=== PATIENT | female | born 1940 | race Caucasian/White ===

== ENCOUNTER 2019-08-17 13:19 | Inpatient (IN) ==
[2019-08-17] MEDS ORDERED: ONDANSETRON 4 MG/2 ML VIAL IV STA (13:52)
[2019-08-17] MEDS ORDERED: fentaNYL 100 MCG/2 ML VIAL IV STA (13:52)
[2019-08-17] MEDS ORDERED: fentaNYL 100 MCG/2 ML VIAL IV PRN (15:04)
[2019-08-17] MEDS ORDERED: ONDANSETRON 4 MG/2 ML VIAL IV PRN (15:04)
[2019-08-17 16:00] LABS: Basophils # 0.1 10*3/uL (0.0-0.2); Basophils % 0.5 % (0.0-0.8); Eosinophils # 0.2 10*3/uL (0.0-0.87); Eosinophils % 1.1 % (0.00-10.9); Hematocrit 35.3 VOL% (35.7-47.0); Hemoglobin 11.4 GM/DL (12.0-16.0); Immature Granulocytes % 0.7 %; Immature Granulocytes Absolute 0.11 #; Lymphocytes # 2.7 10*3/uL (1.4-4.0); Lymphocytes % 15.9 % (21.3-54.2); Mean Corpuscular HGB Conc 32.3 GM/DL (32-36); Mean Corpuscular Volume 89.1 FL (87-102); Mean Platelet Volume 10.8 FL (9.6-12.0); Monocytes % 7.1 % (1.7-12.7); Neutrophils % 74.7 % (38.7-73.9); Platelet Count 311 T/CUMM (130-400); Red Blood Count 3.96 MC/CUMM (3.8-5.5); Red Cell Distribution Width 13.6 % (9.3-17.3); White Blood Count 16.9 T/CUMM (4-12)
[2019-08-17 16:09] LABS: PT Patient Result 21.5 SECS (9.6-12.2)
[2019-08-17 16:21] LABS: Alanine Aminotransferase 23 U/L (13-56); Albumin 3.2 G/DL (3.4-5.0); Alkaline Phosphatase 79 U/L (45-117); Aspartate Amino Transferase 27 U/L (0-37); Blood Urea Nitrogen 20 MG/DL (7-18); Calcium 8.9 MG/DL (8.5-10.1); Estimated Glom Filtration Rate 63 ML/MIN; Glucose 98 MG/DL (74-106); Total Protein 7.7 G/DL (6.4-8.3); Troponin I < 0.015 NG/ML (0.00-0.045)
[2019-08-17 16:52] LABS: Apearance,Urine Slightly Hazy (Clear); Bacteria,Urine Occasional /HPF (Few); Bilirubin,Urine Negative (Negative); Blood, Urine Negative (Negative); Glucose,Urine (UA) Negative (Negative); Ketones,Urine Negative (Negative); Mucus,Urine Occasional /LPF (Occasional); Nitrite,Urine Negative (Negative); Protein,Urine Negative; Urine Color Yellow (Yellow); Urine Specific Gravity 1.012 (1.001-1.035)
[2019-08-17] MEDS ORDERED: SODIUM CHLORIDE 0.9% 1,000 ML IV PRN (17:01)
[2019-08-17] MEDS ORDERED: PHYTONADIONE 10 MG/1 ML AMP SUBCUT ONE (17:02)
[2019-08-17] MEDS ORDERED: ZALEPLON 5 MG CAPSULE PO PRN (20:58)
[2019-08-17] MEDS ORDERED: MORPHINE 4 MG/1 ML VIAL IV PRN (20:58)
[2019-08-17] MEDS: SOTALOL 80 MG TABLET PO SCH (21:19)
[2019-08-17] MEDS: GABAPENTIN 300 MG CAPSULE PO SCH (21:19)
[2019-08-17] MEDS: MORPHINE 4 MG/1 ML VIAL IV PRN (23:05)
[2019-08-18] MEDS: MORPHINE 4 MG/1 ML VIAL IV PRN (05:14)
[2019-08-18 06:23] LABS: Basophils % 0.3 % (0.0-0.8); Eosinophils # 0.2 10*3/uL (0.0-0.87); Eosinophils % 1.8 % (0.00-10.9); Hematocrit 29.3 VOL% (35.7-47.0); Hemoglobin 9.3 GM/DL (12.0-16.0); Immature Granulocytes % 0.3 %; Immature Granulocytes Absolute 0.04 #; Lymphocytes # 3.1 10*3/uL (1.4-4.0); Mean Corpuscular HGB Conc 31.7 GM/DL (32-36); Mean Corpuscular Volume 88.5 FL (87-102); Mean Platelet Volume 11.1 FL (9.6-12.0); Neutrophils % 61.6 % (38.7-73.9); Platelet Count 279 T/CUMM (130-400); Red Blood Count 3.31 MC/CUMM (3.8-5.5); Red Cell Distribution Width 13.8 % (9.3-17.3)
[2019-08-18] MEDS: LEVOTHYROXINE 100 MCG TABLET PO SCH (06:31)
[2019-08-18 06:37] LABS: INR 1.7; Partial Thromboplastin Time 34.1 SECS (20.8-36.0)
[2019-08-18 06:41] LABS: Calcium 8.7 MG/DL (8.5-10.1)
[2019-08-18] MEDS ORDERED: CLINDAMYCIN INJ 900 MG in PREMIX 1 EACH IV ONE (07:00)
[2019-08-18] MEDS ORDERED: CLINDAMYCIN INJ 50 ML IV ONE (07:47)
[2019-08-18] MEDS ORDERED: BISACODYL 10 MG SUPP RECTAL PRN (08:47)
[2019-08-18] MEDS ORDERED: PROMETHAZINE 25 MG/1 ML VIAL IM PRN (08:47)
[2019-08-18] MEDS ORDERED: diphenhydrAMINE CAP 25 MG CAPSULE PO PRN (08:47)
[2019-08-18] MEDS ORDERED: LACTULOSE 20 GM/30 ML UDCUP PO PRN (08:47)
[2019-08-18] MEDS ORDERED: MAGNESIUM HYDROXIDE SUSP 30 ML UDCUP PO PRN (08:47)
[2019-08-18] MEDS ORDERED: MORPHINE 4 MG/1 ML VIAL IV PRN (08:52)
[2019-08-18] MEDS ORDERED: MORPHINE 10 MG/1 ML VIAL IV PRN (08:57)
[2019-08-18] MEDS ORDERED: ePHEDrine 50 MG/ML AMP ONE ×2 (09:03→09:08)
[2019-08-18] MEDS ORDERED: fentaNYL 100 MCG/2 ML VIAL ONE (09:08)
[2019-08-18] MEDS ORDERED: PROPOFOL 200 MG/20 ML VIAL IV ONE (09:08)
[2019-08-18] MEDS ORDERED: SEVOFLURANE 1 UNIT/15 MINUTE INH ONE (09:08)
[2019-08-18] MEDS ORDERED: LIDOCAINE 2% 5 ML VIAL ONE (09:08)
[2019-08-18] MEDS ORDERED: ONDANSETRON 4 MG/2 ML VIAL ONE (09:08)
[2019-08-18] MEDS ORDERED: GLYCOPYRROLATE 0.4 MG/2 ML VIAL ONE (09:09)
[2019-08-18] MEDS ORDERED: NEOSTIGMINE 10 MG/10 ML VIAL ONE (09:09)
[2019-08-18] MEDS ORDERED: ROCURONIUM 100 MG/10 ML VIAL IV ONE (09:09)
[2019-08-18] MEDS ORDERED: ACETAMINOPHEN 1,000 MG/100 ML VIAL IV ONE (09:09)
[2019-08-18] MEDS ORDERED: ETOMIDATE 40 MG/20 ML VIAL IV ONE (09:09)
[2019-08-18] MEDS ORDERED: TISSUE ADHESIVE 1 EACH APPLICATOR TOP ONE (10:21)
[2019-08-18] MEDS: LOSARTAN 25 MG TABLET PO SCH (10:57)
[2019-08-18] MEDS: SOTALOL 80 MG TABLET PO SCH ×2 (10:57→20:46)
[2019-08-18] MEDS: PANTOPRAZOLE 40 MG TABLET PO SCH (10:57)
[2019-08-18] MEDS: DOCUSATE SODIUM 100 MG CAPSULE PO SCH ×2 (10:57→20:46)
[2019-08-18] MEDS: GABAPENTIN 300 MG CAPSULE PO SCH ×2 (10:58→20:46)
[2019-08-18] MEDS: CLINDAMYCIN INJ 900 MG in PREMIX 1 EACH IV SCH (16:24)
[2019-08-19] MEDS: WARFARIN 2.5 MG TABLET PO SCH (00:12)
[2019-08-19] MEDS: CLINDAMYCIN INJ 900 MG in PREMIX 1 EACH IV SCH (00:13)
[2019-08-19 04:48] LABS: Basophils # 0.1 10*3/uL (0.0-0.2); Basophils % 0.4 % (0.0-0.8); Eosinophils # 0.3 10*3/uL (0.0-0.87); Eosinophils % 2.4 % (0.00-10.9); Hematocrit 25.2 VOL% (35.7-47.0); Immature Granulocytes % 0.4 %; Immature Granulocytes Absolute 0.06 #; Lymphocytes # 2.8 10*3/uL (1.4-4.0); Lymphocytes % 19.8 % (21.3-54.2); Mean Corpuscular HGB Conc 31.7 GM/DL (32-36); Mean Corpuscular Volume 89.4 FL (87-102); Mean Platelet Volume 11.1 FL (9.6-12.0); Monocytes % 11.3 % (1.7-12.7); Neutrophils % 65.7 % (38.7-73.9); Platelet Count 237 T/CUMM (130-400); Red Blood Count 2.82 MC/CUMM (3.8-5.5); Red Cell Distribution Width 13.5 % (9.3-17.3)
[2019-08-19 04:59] LABS: Calcium 7.6 MG/DL (8.5-10.1); Osmolality,Calculated 272.1 MOS/KG (273-304)
[2019-08-19] MEDS: LEVOTHYROXINE 100 MCG TABLET PO SCH (05:32)
[2019-08-19] MEDS: LOSARTAN 25 MG TABLET PO SCH (08:20)
[2019-08-19] MEDS: GABAPENTIN 300 MG CAPSULE PO SCH ×2 (08:21→22:06)
[2019-08-19] MEDS: SOTALOL 80 MG TABLET PO SCH ×2 (08:21→22:05)
[2019-08-19] MEDS: DOCUSATE SODIUM 100 MG CAPSULE PO SCH ×2 (08:21→22:06)
[2019-08-19] MEDS: PANTOPRAZOLE 40 MG TABLET PO SCH (08:21)
[2019-08-19] MEDS ORDERED: SODIUM CHLORIDE 0.9% 1,000 ML IV PRN (08:32)
[2019-08-19] MEDS ORDERED: ACETAMINOPHEN 325 MG TABLET PO ONE (08:36)
[2019-08-19] MEDS ORDERED: WARFARIN 5 MG TABLET PO SCH (18:00)
[2019-08-19 19:46] LABS: Hematocrit 32.2 VOL% (35.7-47.0); Hemoglobin 10.5 GM/DL (12.0-16.0)
[2019-08-19] MEDS: BENZONATATE 100 MG CAPSULE PO SCH (22:05)
[2019-08-20] MEDS: LEVOTHYROXINE 100 MCG TABLET PO SCH (05:44)
[2019-08-20 06:15] LABS: Basophils # 0.1 10*3/uL (0.0-0.2); Basophils % 0.5 % (0.0-0.8); Eosinophils # 0.3 10*3/uL (0.0-0.87); Eosinophils % 2.2 % (0.00-10.9); Hematocrit 31.1 VOL% (35.7-47.0); Hemoglobin 10.2 GM/DL (12.0-16.0); Immature Granulocytes % 0.4 %; Immature Granulocytes Absolute 0.05 #; Lymphocytes # 2.4 10*3/uL (1.4-4.0); Lymphocytes % 19.1 % (21.3-54.2); Mean Corpuscular HGB Conc 32.8 GM/DL (32-36); Mean Corpuscular Volume 87.9 FL (87-102); Mean Platelet Volume 11.7 FL (9.6-12.0); Neutrophils % 64.8 % (38.7-73.9); Platelet Count 227 T/CUMM (130-400); Red Blood Count 3.54 MC/CUMM (3.8-5.5); Red Cell Distribution Width 13.6 % (9.3-17.3); White Blood Count 12.8 T/CUMM (4-12)
[2019-08-20] MEDS: DOCUSATE SODIUM 100 MG CAPSULE PO SCH ×2 (08:48→21:36)
[2019-08-20] MEDS: LOSARTAN 25 MG TABLET PO SCH (08:49)
[2019-08-20] MEDS: BENZONATATE 100 MG CAPSULE PO SCH ×3 (08:49→21:36)
[2019-08-20] MEDS: PANTOPRAZOLE 40 MG TABLET PO SCH (08:49)
[2019-08-20] MEDS: GABAPENTIN 300 MG CAPSULE PO SCH ×2 (08:50→21:36)
[2019-08-20] MEDS: SOTALOL 80 MG TABLET PO SCH ×2 (08:50→21:36)
[2019-08-20] MEDS: WARFARIN 2.5 MG TABLET PO SCH (18:49)
[2019-08-21 06:09] LABS: Basophils # 0.1 10*3/uL (0.0-0.2); Basophils % 0.5 % (0.0-0.8); Eosinophils # 0.3 10*3/uL (0.0-0.87); Eosinophils % 1.9 % (0.00-10.9); Hematocrit 34.4 VOL% (35.7-47.0); Hemoglobin 11.4 GM/DL (12.0-16.0); Immature Granulocytes % 0.6 %; Lymphocytes # 2.7 10*3/uL (1.4-4.0); Lymphocytes % 16.8 % (21.3-54.2); Mean Corpuscular HGB Conc 33.1 GM/DL (32-36); Mean Corpuscular Volume 87.3 FL (87-102); Mean Platelet Volume 11.7 FL (9.6-12.0); Monocytes % 12.3 % (1.7-12.7); Neutrophils % 67.9 % (38.7-73.9); Platelet Count 293 T/CUMM (130-400); Red Blood Count 3.94 MC/CUMM (3.8-5.5); Red Cell Distribution Width 13.6 % (9.3-17.3); White Blood Count 16.3 T/CUMM (4-12)
[2019-08-21] MEDS: LEVOTHYROXINE 100 MCG TABLET PO SCH (06:50)
[2019-08-21] MEDS ORDERED: KETOROLAC 30 MG/1 ML VIAL IV ONE (08:51)
[2019-08-21] MEDS: PANTOPRAZOLE 40 MG TABLET PO SCH (08:52)
[2019-08-21] MEDS: BENZONATATE 100 MG CAPSULE PO SCH (08:52)
[2019-08-21] MEDS: DOCUSATE SODIUM 100 MG CAPSULE PO SCH (08:52)
[2019-08-21] MEDS: SOTALOL 80 MG TABLET PO SCH (08:52)
[2019-08-21] MEDS: GABAPENTIN 300 MG CAPSULE PO SCH (08:52)
[2019-08-21] MEDS: LOSARTAN 25 MG TABLET PO SCH (09:13)
[2019-08-21 12:17] VITALS: BP 137/68
== END 2019-08-21 13:29 | DRG 470 ==
LOC: EDUNIT# → EDBD → N.ED 13:19 → N.EDINP 15:03 → N.TELES 15:35 → N.3E 08-18 09:59
PROVIDERS: ADMIT Family Medicine; ATTEND Family Medicine